=== PATIENT | male | born 1985 | race Caucasian/White ===

== ENCOUNTER 2017-08-31 09:49 | Emergency (ER) | payer OTHER, SELFPAY ==
[2017-08-31] MEDS ORDERED: ONDANSETRON 4 MG/2 ML VIAL ONE (10:12)
[2017-08-31] MEDS ORDERED: MORPHINE 4 MG/ML SYR ONE (10:12)
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
[2017-08-31 14:02] VITALS: BP 109/74; TEMP 98.1; O2SAT 100
== END 2017-08-31 13:51 | disposition home or self-care (01) ==
LOC: ER 09:49
DX: S30.22XA Contusion of scrotum and testes, initial encounter (principal); W50.0XXA Accidental hit or strike by another person, initial encounter; Y92.009 Unspecified place in unspecified non-institutional (private) residence as the place of occurrence of the external cause
CPT/HCPCS: 76870; 99284; J2405

== ENCOUNTER 2017-09-18 08:46 | Emergency (ER) | payer SELFPAY ==
[2017-09-18] MEDS ORDERED: HYDROCODONE/APAP 10/325 TAB ONE (09:26)
[2017-09-18] MEDS ORDERED: CYCLOBENZAPRINE 10 MG TAB ONE (09:26)
[2017-09-18] MEDS ORDERED: predniSONE 20 MG TAB ONE (09:27)
--- NOTE | 2017-09-18 10:37 | RAD REPORT ---
EXAM DESCRIPTION: RAD - Chest Single View - 09/18/2017 10:08 am CLINICAL HISTORY: lateral thorax pain Chest pain. COMPARISON: None FINDINGS: Portable technique limits examination quality. The lungs are grossly clear. The heart is normal in size. No displaced fractures. IMPRESSION: No acute intrathoracic process suspected.
--- NOTE | 2017-09-18 10:39 | RAD REPORT ---
EXAM DESCRIPTION: RAD - Ribs Left - 09/18/2017 10:08 am CLINICAL HISTORY: PAIN COMPARISON: Chest Single View dated 09/18/2017 FINDINGS: No fracture or subluxation is seen. No aggressive bone lesion. IMPRESSION: Negative study.
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
--- NOTE | 2017-09-18 10:48 | ER ---
Nurse's Notes [facility] Name: Reginald Vieyra Age: 31 yrs Sex: Male : 1985 Arrival Date: 09/18/2017 Time: 08:48 Bed 7 Private MD: None, None Diagnosis: Chest pain on breathing;Other chest pain;Fracture of one rib Presentation: 09/18 08:52 Transition of care: patient was not received from another setting of care. Onset of sg symptoms was September 18, 2017. Risk Assessment: Do you want to hurt yourself or someone else? Patient reports no desire to harm self or others. Initial Sepsis Screen: Does the patient meet any 2 criteria? No. Patient's initial sepsis screen is negative. Does the patient have a suspected source of infection? No. Patient's initial sepsis screen is negative. Care prior to arrival: None. 08:52 Method Of Arrival: Ambulatory sg 08:52 Acuity: GALE 3 sg 08:54 Presenting complaint: Patient states: I was seen here like the beginning of last month sg for some pain in my testicles, well today I have pain in my Left Side, like my left rib area, its been hurting now for about a week and i just want to get it checked out, and still having pain in my testicles. Triage Assessment: 08:54 General: Appears in no apparent distress. comfortable, well groomed, well developed, sg well nourished, Behavior is calm, cooperative, appropriate for age. Pain: Complains of pain in back, left lateral anterior chest and groin. Historical: - Allergies: 08:52 No Known Allergies; sg - PMHx: 08:52 testicular torsion; sg - Immunization history:: Adult Immunizations not up to date. - Social history:: Smoking status: . - Ebola Screening: : Patient negative for fever greater than or equal to 101.5 degrees Fahrenheit, and additional compatible Ebola Virus Disease symptoms Patient denies exposure to infectious person Patient denies travel to an Ebola-affected area in the 21 days before illness onset No symptoms or risks identified at this time. Screenin:59 Abuse screen: Denies threats or abuse. Denies injuries from another. Nutritional sg screening: No deficits noted. Tuberculosis screening: No symptoms or risk factors identified. Never had TB. Fall Risk None identified. Assessment: 08:55 General: Appears in no apparent distress. comfortable, well groomed, well developed, sg well nourished, Behavior is calm, cooperative, appropriate for age. Pain: Complains of pain in back and groin and left lateral anterior chest Quality of pain is described as aching. Neuro: No deficits noted. Cardiovascular: Patient's skin is warm and dry. Chest pain is located in left chest wall. Respiratory: Reports pain with respiration Airway is patent Respiratory effort is even, unlabored, Respiratory pattern is regular, symmetrical. GI: No signs and/or symptoms were reported involving the gastrointestinal system. : No signs and/or symptoms were reported regarding the genitourinary system. EENT: No signs and/or symptoms were reported regarding the EENT system. Derm: Skin is pink, warm \T\ dry. Musculoskeletal: No signs and/or symptoms reported regarding the musculoskeletal system. 09:45 Reassessment: Patient appears in no apparent distress at this time. Patient and/or hb family updated on plan of care and expected duration. Pain level reassessed. Patient is alert, oriented x 3, equal unlabored respirations, skin warm/dry/pink. 10:38 Reassessment: Patient appears in no apparent distress at this time. No changes from previously documented assessment. Patient and/or family updated on plan of care and expected duration. Pain level reassessed. Patient is alert, oriented x 3, equal unlabored respirations, skin warm/dry/pink. 10:45 Reassessment: pt ambulatory to ER restroom, steady gait. sg Vital Signs: 08:57 BP 116 / 77; Pulse 78; Resp 16 S; Temp 97.9(O); Pulse Ox 100% on R/A; Weight 92.99 kg sg (R); Pain 7/10; 09:45 BP 120 / 76; Pulse 77; Resp 15; Pulse Ox 100% on R/A; hb 10:39 BP 126 / 74; Pulse 70; Resp 15; Pulse Ox 100% on R/A; hb ED Course: 08:48 Patient arrived in ED. sb2 08:49 None, None is Private Physician. sb2 08:54 Triage completed. sg 08:55 No provider procedures requiring assistance completed. sg 08:58 Arm band placed on. sg 09:13 Kem Hammond MD is Attending Physician. kdr 09:24 Ford, Dejan, RN is Primary Nurse. sg 09:25 Awaiting for x-ray. sg 09:54 Awaiting radiology results. sg 10:03 CXR XRAY In Process Unspecified. EDMS 10:03 Ribs Left XRAY In Process Unspecified. EDMS Administered Medications: 09:24 Drug: [place] 10 mg-325 mg 1 tabs Route: PO; sg 10:44 Follow up: Response: No adverse reaction; Pain is decreased sg 09:25 Drug: Flexeril 10 mg Route: PO; sg 10:44 Follow up: Response: No adverse reaction sg 09:25 Drug: predniSONE 40 mg Route: PO; sg 10:45 Follow up: Response: No adverse reaction sg Outcome: 10:48 Discharge ordered by . kdr 11:07 Patient left the ED. sg Signatures: Dispatcher [employer] Dejan Hartman, RN RN Kem Gannon MD MD kdr Delfina Whitfield RN RN Sapna Rey sb2 Corrections: (The following items were deleted from the chart) 08:59 08:57 BP 116 / 77; Pulse 78bpm; Resp 16bpm; Spontaneous; Pulse Ox 100% RA; Temp 97.9F sg Oral; 70.31 kg Reported; Pain 7/10; sg 09:54 09:25 Awaiting: ultrasound sg sg
[2017-09-18 11:12] VITALS: TEMP 97.9; O2SAT 100
[2017-09-18 11:14] VITALS: BP 126/74
== END 2017-09-18 11:07 | disposition home or self-care (01) ==
LOC: ER 08:46
DX: M84.48XA Pathological fracture, other site, initial encounter for fracture (principal); R07.89 Other chest pain
CPT/HCPCS: 71045; 99283; J7512

== ENCOUNTER 2018-10-18 05:43 | Emergency (ER) | payer SELFPAY ==
[2018-10-18 06:29] LABS: Absolute Lymphocytes (CBC) 1.6 K/uL (0.7-4.9); Basophils % 0.9 % (0-1.3); Hematocrit 34.5 % (39.6-49.0); MPV 8.6 fL (7.6-11.3); RBC Red Blood Cell Count 4.29 M/uL (4.33-5.43)
[2018-10-18 06:43] LABS: BUN Blood Urea Nitrogen 22 mg/dL (7-18); Bicarbonate 26 mmol/L (21-32); Glucose Level 117 mg/dL (74-106); Potassium 3.6 mmol/L (3.5-5.1); Sodium Level 146 mmol/L (136-145); Troponin (Emerg Dept Use Only) < 0.02 ng/mL (0.0-0.045)
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
[2018-10-18 06:48] VITALS: BP 115/77; TEMP 98.6; O2SAT 98
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
--- NOTE | 2018-10-18 11:46 | RAD REPORT ---
EXAM DESCRIPTION: Taty Single View10/18/2018 6:33 am CLINICAL HISTORY: Chest pain COMPARISON: 2018 FINDINGS: The lungs appear clear of acute infiltrate. The heart is normal size IMPRESSION: No acute abnormalities displayed
--- NOTE | 2018-10-19 08:39 | EKG ---
Test Date: 2018-10-18 Test Time: 06:09:55 Special Education Teaching Assistant: VALERIO MEASUREMENT RESULTS: Intervals: Rate: 97 ND: 158 QRSD: 96 QT: 346 QTc: 439 Paden: P: 76 ND: 158 QRS: 70 T: 63 INTERPRETIVE STATEMENTS: Normal sinus rhythm Normal ECG No previous ECG available for comparison Electronically Signed On 10-19-18 08:36:23 CDT by Maxx Giles
== END 2018-10-18 06:44 | disposition left against medical advice (07) ==
LOC: ER 05:43
DX: R07.89 Other chest pain (principal)
CPT/HCPCS: 36415; 71045; 80048; 84484; 85025; 93005; 99284

== ENCOUNTER 2018-11-10 12:08 | Emergency (ER) | payer SELFPAY ==
[2018-11-10] MEDS ORDERED: TETANUS & DIPHTHERIA TOX,ADULT 0.5 ML VIAL ONE (12:36)
[2018-11-10] MEDS ORDERED: CODEINE 30MG/APAP 300MG TAB ONE (12:37)
--- NOTE | 2018-11-10 13:30 | EDPHYS ---
Physician Documentation [facility] Name: Reginald Vieyra Age: 32 yrs Sex: Male : 1985 Arrival Date: 11/10/2018 Time: 12:11 Bed 17 Private MD: None, None ED Physician Juan Leonard HPI: 11/10 12:35 This 32 yrs old Male presents to ER via Ambulatory with complaints of Finger pm1 swelling. 12:35 the patient presents with a swollen area of the dorsal aspect of distal phalanx of pm1 right middle finger. Description: swollen. Onset: The symptoms/episode began/occurred 3 day(s) ago. Possible cause(s): unknown. Associated signs and symptoms: Pertinent positives: swelling, Pertinent negatives: foreign body sensation, fever. Modifying factors: the symptoms are alleviated by nothing, the symptoms are aggravated by nothing. The patient has not recently seen a physician. Patient has attempted I\\T\\D multiple times since onset, including today, and no drainage present. 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 - Social history:: Smoking status: . - Ebola Screening: : Patient denies travel to an Ebola-affected area in the 21 days before illness onset. ROS: 12:35 Constitutional: Negative for fever, chills, and weight loss, Eyes: Negative for injury, pm1 pain, redness, and discharge, ENT: Negative for injury, pain, and discharge, Neck: Negative for injury, pain, and swelling, Cardiovascular: Negative for chest pain, palpitations, and edema, Respiratory: Negative for shortness of breath, cough, wheezing, and pleuritic chest pain, Abdomen/GI: Negative for abdominal pain, nausea, vomiting, diarrhea, and constipation, Back: Negative for injury and pain, MS/Extremity: Negative for injury and deformity. 12:35 Skin: Positive for swelling, of the dorsal aspect of distal phalanx of right middle finger. Exam: 12:35 Constitutional: This is a well developed, well nourished patient who is awake, alert, pm1 and in no acute distress. Chest/axilla: Normal chest wall appearance and motion. Nontender with no deformity. No lesions are appreciated. Cardiovascular: Regular rate and rhythm with a normal S1 and S2. No gallops, murmurs, or rubs. Normal PMI, no JVD. No pulse deficits. Respiratory: Lungs have equal breath sounds bilaterally, clear to auscultation and percussion. No rales, rhonchi or wheezes noted. No increased work of breathing, no retractions or nasal flaring. Back: No spinal tenderness. No costovertebral tenderness. Full range of motion. 12:35 Skin: Appearance: normal except for affected area, abscess, not appreciated, cellulitis, that is minimal, on the dorsal aspect of distal phalanx of right middle finger. 12:35 Neuro: Orientation: is normal, Sensation: is normal, no obvious gross deficits. Vital Signs: 12:16 BP 130 / 82; Pulse 104; Resp 18; Temp 98.6; Pulse Ox 100% ; Height 6 ft. 2 in. (187.96 sv cm); MDM: 12:20 Patient medically screened. pm1 13:26 Data reviewed: vital signs. Data interpreted: Pulse oximetry: on room air is 100 %. pm1 Interpretation: normal. Counseling: I had a detailed discussion with the patient and/or guardian regarding: the historical points, exam findings, and any diagnostic results supporting the discharge/admit diagnosis, radiology results, the need for outpatient follow up, to return to the emergency department if symptoms worsen or persist or if there are any questions or concerns that arise at home. 11/10 12:28 Order name: Hand Right 3 View XRAY pm1 Administered Medications: 12:40 Not Given (Patient Refused; pt states "had tetanus shot when i got out of intermediate 2016"): Tetanus-Diphtheria Toxoid Adult 0.5 ml IM once 12:40 Not Given (Patient Refused; states had "tetanus in 2017 when i got out of intermediate"): tw Tylenol #3 (300 mg-30 mg) 2 tabs PO once; RASS on ADMIN: Combtv4, Very Agttd3, Agttd2, Rstlss1, AlertClm0, Drwsy-1, Lt Sdtn-2, Mod Sdtn-3, Dp Sdtn-4, UnArsble-5 12:40 Drug: Tylenol #3 (300 mg-30 mg) 2 tabs {Note: rass - 0.} Route: PO; tw2 13:36 Follow up: Response: No adverse reaction; Pain is decreased; RASS: Alert and Calm (0) tw2 Disposition: 11/10/18 13:29 Discharged to Home. Impression: Cellulitis of right finger. - Condition is Stable. - Discharge Instructions: Cellulitis, Adult. - Prescriptions for Augmentin 875- 125 mg Oral Tablet - take 1 tablet by ORAL route every 12 hours for 10 days; 20 tablet. Bactrim DS 800- 160 mg Oral Tablet - take 1 tablet by ORAL route every 12 hours for 10 days; 20 tablet. - Medication Reconciliation Form, Thank You Letter, Antibiotic Education, Prescription Opioid Use form. - Follow up: Emergency Department; When: As needed; Reason: Worsening of condition. Follow up: Private Physician; When: 2 - 3 days; Reason: Recheck today's complaints, Continuance of care, Re-evaluation by your physician. - Problem is new. - Symptoms have improved. Addendum: 11/12/2018 07:27 Co-signature as Attending Physician, Juan Leonard MD. g s Signatures: Dispatcher [employer] EDMS Jackie Maldonado RN RN sv Jorden Lopez NP COSMETIC ASSEMBLER pm1 Lela Hopkins RN RN tw2 Juan Leonard MD MD Corrections: (The following items were deleted from the chart) 11/10 13:38 13:29 11/10/2018 13:29 Discharged to Home. Impression: Cellulitis of right finger. tw2 Condition is Stable. Forms are Medication Reconciliation Form, Thank You Letter, Antibiotic Education, Prescription Opioid Use. Follow up: Emergency Department; When: As needed; Reason: Worsening of condition. Follow up: Private Physician; When: 2 - 3 days; Reason: Recheck today's complaints, Continuance of care, Re-evaluation by your physician. Problem is new. Symptoms have improved. pm1
--- NOTE | 2018-11-10 13:30 | ER ---
Nurse's Notes [facility] Name: Reginald Vieyra Age: 32 yrs Sex: Male : 1985 Arrival Date: 11/10/2018 Time: 12:11 Bed 17 Private MD: None, None Diagnosis: Cellulitis of right finger Presentation: 11/10 12:16 Presenting complaint: Patient states: right 4th digit swelling and redness. Pt I\\T\\D COMPTROLLER. sv Transition of care: patient was not received from another setting of care. Onset of symptoms was October 2018. Risk Assessment: Do you want to hurt yourself or someone else? Patient reports no desire to harm self or others. Care prior to arrival: Medication(s) given: took a PCN pill from someone this morning. 12:16 Method Of Arrival: Ambulatory sv 12:16 Acuity: GALE 3 sv 13:36 Initial Sepsis Screen: Does the patient meet any 2 criteria? No. Patient's initial tw2 sepsis screen is negative. Does the patient have a suspected source of infection? Yes: Skin breakdown/wound. 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 - Social history:: Smoking status: . - Ebola Screening: : Patient denies travel to an Ebola-affected area in the 21 days before illness onset. Screenin:36 Abuse screen: Denies threats or abuse. Nutritional screening: No deficits noted. tw2 Tuberculosis screening: No symptoms or risk factors identified. Fall Risk None identified. Assessment: 12:30 General: Appears in no apparent distress. unkempt, Behavior is calm, cooperative, tw2 appropriate for age. Pain: Complains of pain in right hand. Neuro: Level of Consciousness is awake, alert, obeys commands, Oriented to person, place, time, situation. Cardiovascular: Patient's skin is warm and dry. Respiratory: Airway is patent Respiratory effort is even, unlabored, Respiratory pattern is regular, agonal. GI: No signs and/or symptoms were reported involving the gastrointestinal system. Derm: redness and swelling noted to Right hand middle finger. Musculoskeletal: Range of motion: intact in all extremities, Swelling present in dorsal aspect of distal phalanx of right middle finger, dorsal aspect of middle phalanx of right middle finger and dorsal aspect of proximal phalanx of right middle finger. 13:36 Reassessment: Patient appears in no apparent distress at this time. No changes from tw2 previously documented assessment. Patient and/or family updated on plan of care and expected duration. Pain level reassessed. Patient is alert, oriented x 3, equal unlabored respirations, skin warm/dry/pink. Vital Signs: 12:16 BP 130 / 82; Pulse 104; Resp 18; Temp 98.6; Pulse Ox 100% ; Height 6 ft. 2 in. (187.96 sv cm); ED Course: 12:11 Patient arrived in ED. dl4 12:12 None, None is Private Physician. dl4 12:16 Triage completed. sv 12:17 Arm band placed on. sv 12:18 Jorden Lopez, GIUSEPPE is PHCP. pm1 12:18 Juan Leonard MD is Attending Physician. pm1 12:31 Lela Hopkins RN is Primary Nurse. tw2 13:02 Patient has correct armband on for positive identification. Bed in low position. Call mh5 light in reach. Side rails up X 1. Adult w/ patient. Pulse ox on. NIBP on. 13:21 Hand Right 3 View XRAY In Process Unspecified. EDMS 13:37 No provider procedures requiring assistance completed. Patient did not have IV access tw2 during this emergency room visit. Administered Medications: 12:40 Not Given (Patient Refused; pt states "had tetanus shot when i got out of [facility] tw2 2016"): Tetanus-Diphtheria Toxoid Adult 0.5 ml IM once 12:40 Not Given (Patient Refused; states had "tetanus in 2017 when i got out of [facility]"): tw2 Tylenol #3 (300 mg-30 mg) 2 tabs PO once; RASS on ADMIN: Combtv4, Very Agttd3, Agttd2, Rstlss1, AlertClm0, Drwsy-1, Lt Sdtn-2, Mod Sdtn-3, Dp Sdtn-4, UnArsble-5 12:40 Drug: Tylenol #3 (300 mg-30 mg) 2 tabs {Note: rass - 0.} Route: PO; tw2 13:36 Follow up: Response: No adverse reaction; Pain is decreased; RASS: Alert and Calm (0) tw2 Outcome: 13:29 Discharge ordered by MD. pm1 13:37 Discharged to home ambulatory, with significant other. tw2 13:37 Condition: stable 13:37 Discharge instructions given to patient, significant other, Instructed on discharge instructions, follow up and referral plans. medication usage, wound care, Demonstrated understanding of instructions, follow-up care, medications, wound care, Prescriptions given X 2. 13:38 Patient left the ED. tw2 Signatures: Dispatcher [employer] Jackie Mckoy RN RN Jroden Lopez, GIUSEPPE CUPBOARD BUILDER pm1 Lela Hopkins RN RN tw2 Julita Sullivan [facility] Sarah 4 Corrections: (The following items were deleted from the chart) 12:17 12:16 Care prior to arrival: None. nicki caceres
[2018-11-10 13:43] VITALS: BP 130/82; TEMP 98.6; O2SAT 100
--- NOTE | 2018-11-10 13:43 | RAD REPORT ---
EXAM DESCRIPTION: RAD - Hand Right 3 View - 11/10/2018 1:20 pm CLINICAL HISTORY: Right hand pain, pain and swelling right fourth digit COMPARISON: None. FINDINGS: No fracture is identified. There is no dislocation or periosteal reaction noted. No acute or destructive bone process. There is soft tissue swelling primarily around the PIP joint of the rig ht fourth digit. No calcification, mass or foreign body in the soft tissues. The fourth PIP joint maria guadalupe ws no joint space narrowing, spurring or erosive change. IMPRESSION: Soft tissue swelling of the right fourth digit without associated bone or joint abnormal ity. No calcification, air or foreign body in the soft tissues.
== END 2018-11-10 13:38 | disposition home or self-care (01) ==
LOC: ER 12:08
DX: L03.011 Cellulitis of right finger (principal)
CPT/HCPCS: 90714; 99284

== ENCOUNTER 2018-11-14 10:02 | Emergency (ER) | payer SELFPAY ==
[2018-11-14] MEDS ORDERED: NA CHLORIDE 0.9% 1,000 ML ONE (10:31)
[2018-11-14] MEDS ORDERED: PIPER/TAZO/NS 3.375gm 0 GM/0 ML BAG ONE (10:58)
[2018-11-14 10:59] LABS: Absolute Lymphocytes (CBC) 1.6 K/uL (0.7-4.9); Basophils % 0.7 % (0-1.3); Hematocrit 39.5 % (39.6-49.0); Lymphocytes % 20.1 % (15.3-44.8); MPV 8.4 fL (7.6-11.3); RBC Red Blood Cell Count 4.89 M/uL (4.33-5.43)
[2018-11-14] MEDS ORDERED: LIDOCAINE 1% MPF 5 ML VIAL ONE (11:02)
[2018-11-14] MEDS ORDERED: DOXYCYCLINE 100 MG CAP PO ONE (11:03)
[2018-11-14] MEDS ORDERED: BUPIVACAINE 0.25% PF 10 ML VIAL ONE (11:03)
[2018-11-14] MEDS ORDERED: LIDOCAINE 1% MPF 30 ML VIAL ONE ×2 (11:14→12:12)
--- NOTE | 2018-11-14 11:42 | RAD REPORT ---
EXAM DESCRIPTION: RAD - Hand Right 3 View - 11/14/2018 10:55 am CLINICAL HISTORY: Right hand pain FINDINGS: No fracture or dislocation is seen. Soft tissue swelling adjacent to the the fourth the middle and distal phalanges. No bony destruction is seen
[2018-11-14 11:55] LABS: C-Reactive Protein 37.5 mg/L (<3.00); Potassium 3.9 mmol/L (3.5-5.1)
--- NOTE | 2018-11-14 12:47 | EDPHYS ---
Physician Documentation [facility] Name: Reginald Vieyra Age: 32 yrs Sex: Male : 1985 Arrival Date: 11/14/2018 Time: 10:07 Bed 20 Private MD: ED Physician Rafael Loja HPI: 11/14 10:25 This 32 yrs old Male presents to ER via EMS with complaints of Wound cp Infection. 10:25 The patient or guardian reports pain. cp 10:25 The complaints affect the dorsal aspect of middle phalanx of right ring finger. cp 10:25 Context: Patient reports improved swelling of finger, but now has open wound with cp drainage today. Patient was seen 4 days ago for infected right fourth finger and discharge with RXs for oral Augmentin and Bactrim. Patient reports he picked up Bactrim only from pharmacy and has only taken 3 doses. Patient reports he was unable to afford Augmentin. Denies injury to finger. Historical: - Allergies: 10:13 No Known Allergies; em - Home Meds: 10:13 None [Active]; em - PMHx: 10:13 testicular torsion; em - PSHx: 10:13 None; em - Immunization history:: Adult Immunizations up to date. - Social history:: Smoking status: Patient/guardian denies using tobacco. - Ebola Screening: : Patient negative for fever greater than or equal to 101.5 degrees Fahrenheit, and additional compatible Ebola Virus Disease symptoms Patient denies exposure to infectious person Patient denies travel to an Ebola-affected area in the 21 days before illness onset No symptoms or risks identified at this time. ROS: 10:30 Constitutional: Negative for body aches, chills, fever, poor PO intake. cp 10:30 Eyes: Negative for injury, pain, redness, and discharge. cp 10:30 MS/extremity: Positive for decreased range of motion, erythema, pain, swelling, cp tenderness, of the right fourth finger, Negative for injury or acute deformity, paresthesias. 10:30 All other systems are negative. cp Exam: 10:45 Constitutional: The patient appears in no acute distress, alert, awake, non-toxic, well cp developed, well nourished. 10:45 Head/Face: Normocephalic, atraumatic. cp 10:45 Musculoskeletal/extremity: ROM: limited passive range of motion due to pain, in the right fourth finger, Perfusion: the extremity is normally perfused throughout. 10:45 Skin: abscess, that is moderate sized, of the dorsal aspect of middle phalanx of right ring finger, with drainage, that is purulent, with fluctuance, with surrounding cellulitis, that is moderate, extending proximally. 10:45 Neuro: Sensation: no obvious gross deficits. Vital Signs: 10:13 BP 121 / 83; Pulse 96; Resp 18; Temp 98.9(O); Pulse Ox 98% on R/A; Pain 0/10; em 11:00 BP 108 / 60; Pulse 70; Resp 17; Temp 98.4(O); Pulse Ox 100% ; mh5 11:50 BP 113 / 68; Pulse 81; Resp 17; Temp 98.9(O); Pulse Ox 100% on R/A; mh5 Procedures: 12:35 I \T\ D: Incision and drainage was performed for an abscess of the dorsal aspect of cp middle phalanx of right ring finger Prepped with Betadine, Anesthetized with digital block performed with 10 ccs of 50/50 mixture 1% lidocaine w/o epi and 0.5% marcaine w/o epi. Incised with #11 blade. Drained moderate amount purulent fluid. bloody fluid. Cultures obtained. Packed with iodoform gauze, Dressing: bulky type the patient tolerated the procedure well, necrotic tissue removed. 12:35 Performed I\T\D of finger. performed by DR Loja. MDM: 10:12 Patient medically screened. [facility] 12:44 Data reviewed: vital signs, nurses notes, lab test result(s), radiologic studies, plain cp films. 11/14 10:19 Order name: CBC with Diff; Complete Time: 12:04 11/14 11:55 Interpretation: Normal except: HCT 39.5. 11/14 10:19 Order name: BMP; Complete Time: 12:04 11/14 12:04 Interpretation: Normal except: GLUC 121; GFR 80. 11/14 10:19 Order name: XRAY Hand RIGHT 3 View; Complete Time: 11:54 11/14 11:54 Interpretation: Report reviewed. 11/14 10:19 Order name: Wound Culture 11/14 10:19 Order name: Sed Rate; Complete Time: 12:04 11/14 12:05 Interpretation: Within normal limits: SED 9. cp 11/14 10:19 Order name: CRP; Complete Time: 12:04 cp 11/14 12:05 Interpretation: Abnormal: C-REACTIVE PROT 37.50. cp 11/14 10:19 Order name: IV; Complete Time: 10:40 cp 11/14 11:08 Order name: Dressing - Wound; Complete Time: 13:06 cp 11/14 11:08 Order name: Gloves, Sterile; Complete Time: 11:21 cp 11/14 11:08 Order name: Setup Suture Tray; Complete Time: 11:22 cp 11/14 12:31 Order name: Wound dressing: bulky dressing; Complete Time: 13:06 cp Administered Medications: 10:40 Drug: NS 0.9% 1000 ml Route: IV; Rate: 1 bolus; Site: left antecubital; em 11:37 Follow up: IV Status: Completed infusion; IV Intake: 1000ml em 10:58 Not Given (Physician Discretion): Zosyn 3.375 grams IVPB once over 60 mins; (mix in NS em 100 mL) 11:05 Drug: Doxycycline 200 mg Route: PO; em 11:38 Follow up: Response: No adverse reaction em 11:25 Drug: Lidocaine (1 %) 10 ml {Note: administered by PA. Rafael} Volume: 5 ml; Route: em Infiltration; 11:25 Drug: Marcaine (0.5 %) 10 ml {Note: adminisitered by PA. Rafael} Volume: 10 ml; Route: em Infiltration; Disposition: 11/14/18 12:46 Discharged to Home. Impression: Cutaneous abscess of right hand - Right middle finger, Cellulitis of right finger - middle. - Condition is Stable. - Discharge Instructions: Skin Abscess, Cellulitis, Adult, Incision and Drainage. - Prescriptions for Ibuprofen 800 mg Oral Tablet - take 1 tablet by ORAL route every 8 hours As needed take with food; 30 tablet. Doxycycline Hyclate 100 mg Oral Tablet - take 1 tablet by ORAL route every 12 hours; 20 tablet. - Medication Reconciliation Form, Thank You Letter, Antibiotic Education, Prescription Opioid Use form. - Follow up: Primitivo Martinez MD; When: 11/16/2018; Reason: Wound Recheck. - Problem is an ongoing problem. - Symptoms have improved. Addendum: 11/16/2018 08:00 Co-signature as Attending Physician, Rafael Loja MD I agree with the assessment and c chang plan of care. Signatures: Dispatcher [employer] Rafael Mckinney MD MD cha Munoz, Edgar, PRECIPITATOR PRECIPITATOR em Rafael Boyd PA PA cp Corrections: (The following items were deleted from the chart) 11/14 13:21 12:46 11/14/2018 12:46 Discharged to Home. Impression: Cutaneous abscess of right hand em - Right middle finger; Cellulitis of right finger - middle. Condition is Stable. Forms are Medication Reconciliation Form, Thank You Letter, Antibiotic Education, Prescription Opioid Use. Follow up: Primitivo Martinez; When: 11/16/2018; Reason: Wound Recheck. Problem is an ongoing problem. Symptoms have improved. cp 11/15 12:38 11/14 10:25 The complaints affect the cp cp
--- NOTE | 2018-11-14 12:47 | ER ---
Nurse's Notes [facility] Name: Reginald Vieyra Age: 32 yrs Sex: Male : 1985 Arrival Date: 11/14/2018 Time: 10:07 Bed 20 Private MD: Diagnosis: Cutaneous abscess of right hand-Right middle finger;Cellulitis of right finger-middle Presentation: 11/14 10:07 Presenting complaint: EMS states: called out for finger injury/wound on right ring em finger, was seen here in ER 3 days ago and given prescription for Bactrim and amoxicillin for finger abscess, was unable to fill the amoxicillin due to cost, reports abscess popped in the middle of the night, wound noted on right ring finger, exudate noted, denies fever. Transition of care: patient was not received from another setting of care. Onset of symptoms was November 09, 2018. Risk Assessment: Do you want to hurt yourself or someone else? Patient reports no desire to harm self or others. Initial Sepsis Screen: Does the patient meet any 2 criteria? No. Patient's initial sepsis screen is negative. Does the patient have a suspected source of infection? No. Patient's initial sepsis screen is negative. Care prior to arrival: None. 10:07 Method Of Arrival: EMS: [facility] em 10:16 Acuity: GALE 3 ss Historical: - Allergies: 10:13 No Known Allergies; em - Home Meds: 10:13 None [Active]; em - PMHx: 10:13 testicular torsion; em - PSHx: 10:13 None; em - Immunization history:: Adult Immunizations up to date. - Social history:: Smoking status: Patient/guardian denies using tobacco. - Ebola Screening: : Patient negative for fever greater than or equal to 101.5 degrees Fahrenheit, and additional compatible Ebola Virus Disease symptoms Patient denies exposure to infectious person Patient denies travel to an Ebola-affected area in the 21 days before illness onset No symptoms or risks identified at this time. Screenin:13 Abuse screen: Denies threats or abuse. Nutritional screening: No deficits noted. em Tuberculosis screening: No symptoms or risk factors identified. Fall Risk Assessment: 10:13 General: Appears in no apparent distress. comfortable, Behavior is calm, cooperative, em Denies fever. Pain: Denies pain. Neuro: Level of Consciousness is awake, alert, obeys commands, Oriented to person, place, time, situation, Appropriate for age. Cardiovascular: Capillary refill < 3 seconds Patient's skin is warm and dry. Respiratory: Airway is patent Respiratory effort is even, unlabored, Respiratory pattern is regular, symmetrical. Derm: Skin is intact, is healthy with good turgor, Skin is pink, warm \T\ dry. Wound noted dorsal aspect of middle phalanx of right ring finger Wound is exudate and drainage noted. Musculoskeletal: Capillary refill < 3 seconds, Range of motion: intact in all extremities, Swelling present in dorsal aspect of distal phalanx of right ring finger, dorsal aspect of middle phalanx of right ring finger, dorsal aspect of proximal phalanx of right ring finger and right arm. 11:00 Reassessment: Patient appears in no apparent distress at this time. Patient and/or em family updated on plan of care and expected duration. Pain level reassessed. Patient is alert, oriented x 3, equal unlabored respirations, skin warm/dry/pink. 13:00 Reassessment: Patient appears in no apparent distress at this time. Patient and/or em family updated on plan of care and expected duration. Pain level reassessed. Patient is alert, oriented x 3, equal unlabored respirations, skin warm/dry/pink. Patient states feeling better. Vital Signs: 10:13 BP 121 / 83; Pulse 96; Resp 18; Temp 98.9(O); Pulse Ox 98% on R/A; Pain 0/10; em 11:00 BP 108 / 60; Pulse 70; Resp 17; Temp 98.4(O); Pulse Ox 100% ; mh5 11:50 BP 113 / 68; Pulse 81; Resp 17; Temp 98.9(O); Pulse Ox 100% on R/A; mh5 ED Course: 10:07 Patient arrived in ED. em 10:09 Rafael Boyd PA is PHCP. cp 10:10 Rafael Loja MD is Attending Physician. cp 10:13 Arm band placed on. em 10:13 Patient has correct armband on for positive identification. Placed in gown. Bed in low em position. Call light in reach. Pulse ox on. NIBP on. 10:16 Triage completed. ss 10:25 Erazo, Ari, PILE DRIVING SETTER is Primary Nurse. em 10:40 Initial lab(s) drawn, by me, sent to lab. Wound culture swab sent to lab. Inserted em saline lock: 20 gauge in left antecubital area, using aseptic technique. Blood collected. 10:52 Warm blanket given. mh5 10:56 XRAY Hand RIGHT 3 View In Process Unspecified. EDMS 12:45 Primitivo Martinez MD is Referral Physician. cp 13:04 Dressings: non-adherent dressing x 2 dorsal aspect of middle phalanx of left ring mh5 finger and dorsal aspect of proximal phalanx of left ring finger. 13:18 No provider procedures requiring assistance completed. IV discontinued, intact, em bleeding controlled, No redness/swelling at site. Pressure dressing applied. Administered Medications: 10:40 Drug: NS 0.9% 1000 ml Route: IV; Rate: 1 bolus; Site: left antecubital; em 11:37 Follow up: IV Status: Completed infusion; IV Intake: 1000ml em 10:58 Not Given (Physician Discretion): Zosyn 3.375 grams IVPB once over 60 mins; (mix in NS em 100 mL) 11:05 Drug: Doxycycline 200 mg Route: PO; em 11:38 Follow up: Response: No adverse reaction em 11:25 Drug: Lidocaine (1 %) 10 ml {Note: administered by PA. Rafael} Volume: 5 ml; Route: em Infiltration; 11:25 Drug: Marcaine (0.5 %) 10 ml {Note: adminisitered by PA. Rafael} Volume: 10 ml; Route: em Infiltration; Intake: 11:37 IV: 1000ml; Total: 1000ml. em Outcome: 12:46 Discharge ordered by . cp 13:18 Discharged to home ambulatory, with family. em 13:18 Condition: good 13:18 Discharge instructions given to patient, family, Instructed on discharge instructions, follow up and referral plans. medication usage, wound care, Demonstrated understanding of instructions, follow-up care, medications, wound care, Prescriptions given X 2. 13:21 Patient left the ED. em Addendum: 11/17/2018 08:17 Addendum: Culture Results: Positive wound culture. No further action required. Bacteria a a5 sensitive to prescribed antibiotic. Signatures: Dispatcher [employer] EDNJ Ari Erazo LVN PILE DRIVING SETTER Felecia Allen, RN RN aa5 Ladonna Espinoza RN RN ss Rafael Boyd PA PA cp Martinez, Maria [facility]
[2018-11-14 13:40] VITALS: O2SAT 100
[2018-11-14 13:41] VITALS: BP 113/68; TEMP 98.9
== END 2018-11-14 13:21 | disposition home or self-care (01) ==
LOC: ER 10:02
PROC: 0H9FXZZ Drainage of Right Hand Skin, External Approach (ICD-10-PCS; principal; 2018-11-14)
DX: L02.511 Cutaneous abscess of right hand (principal); L03.011 Cellulitis of right finger
CPT/HCPCS: 36415; 80048; 85025; 85652; 86140; 87070; 87077; 87186; 87205; 96360; 99284; J2543; J7030

== ENCOUNTER 2019-02-24 11:55 | Emergency (ER) | payer SELFPAY ==
--- NOTE | 2019-02-24 12:37 | EDPHYS ---
Physician Documentation [facility] Name: Reginald Vieyra Age: 33 yrs Sex: Male : 1985 Arrival Date: 02/24/2019 Time: 11:58 Bed 9 Private MD: Tato Ross E ED Physician Kem Hammond HPI: 02/24 12:29 This 33 yrs old Male presents to ER via Ambulatory with complaints of cp Toothache. 12:29 The patient presents with pain. The problem is located in the right upper and lower cp molars. Onset: The symptoms/episode began/occurred this morning. Associated signs and symptoms: Pertinent negatives: dysphagia, fever, inability to eat. Severity of symptoms: in the emergency department the symptoms are unchanged. Historical: - Allergies: 12:21 No Known Allergies; iw - Home Meds: 12:21 None [Active]; iw - PMHx: 12:21 testicular torsion; iw - PSHx: 12:21 hand; iw - Immunization history:: Adult Immunizations not up to date. - Social history:: Smoking status: Patient/guardian denies using tobacco. - Ebola Screening: : Patient negative for fever greater than or equal to 101.5 degrees Fahrenheit, and additional compatible Ebola Virus Disease symptoms Patient denies exposure to infectious person Patient denies travel to an Ebola-affected area in the 21 days before illness onset No symptoms or risks identified at this time. ROS: 12:31 Eyes: Negative for injury, pain, redness, and discharge. cp 12:31 Constitutional: Negative for body aches, chills, fever, poor PO intake. 12:31 ENT: Positive for dental pain, Negative for drainage from ear(s), ear pain, sore throat, difficulty swallowing, difficulty handling secretions. 12:31 Neck: Negative for pain with movement, pain at rest, stiffness. 12:31 Respiratory: Negative for cough, shortness of breath, wheezing. 12:31 Abdomen/GI: Negative for abdominal pain, nausea, vomiting, and diarrhea. 12:31 Skin: Negative for rash. 12:31 Neuro: Negative for altered mental status, headache. 12:31 All other systems are negative. Exam: 12:32 Head/Face: Normocephalic, atraumatic. cp 12:32 Constitutional: The patient appears in no acute distress, alert, awake, non-toxic, well developed, well nourished. 12:32 Eyes: Periorbital structures: appear normal, Conjunctiva: normal, no exudate, no injection, Sclera: no appreciated abnormality, Lids and lashes: appear normal, bilaterally. 12:32 ENT: External ear(s): are unremarkable, Ear canal(s): are normal, clear, TM's: dullness, bilaterally, Nose: is normal, Mouth: Lips: moist, Oral mucosa: pink and intact, moist, Posterior pharynx: is normal, airway is patent, no erythema, no exudate, Dental exam: dental caries, that is moderate, diffusely, fractured teeth are noted, specifically the upper right third molar (#1), upper right second molar (#2), lower left third molar (#17) and lower right third molar (#32), gum swelling, that is mild, specifically in the upper right third molar (#1) and upper right second molar (#2), pain, that is mild, specifically in the upper right third molar (#1), upper right second molar (#2) and lower right third molar (#32), Voice: is normal. 12:32 Neck: ROM/movement: is normal, is supple, no meningismus, no nuchal rigidity. 12:32 Chest/axilla: Inspection: normal. 12:32 Cardiovascular: Rate: normal. 12:32 Respiratory: the patient does not display signs of respiratory distress, Respirations: normal, no use of accessory muscles, no retractions, labored breathing, is not present. 12:32 Skin: no rash present. Vital Signs: 12:21 BP 119 / 84; Pulse 81; Resp 16; Temp 98.5; Pulse Ox 98% on R/A; Weight 83.91 kg; Height iw 6 ft. 2 in. (187.96 cm); Pain 3/10; 12:21 Body Mass Index 23.75 (83.91 kg, 187.96 cm) iw MDM: 12:26 Patient medically screened. cp 12:30 Differential diagnosis: dental caries, dental abscess, pericoronitis. cp 12:35 Data reviewed: vital signs, nurses notes, and as a result, I will discharge patient. cp Counseling: I had a detailed discussion with the patient and/or guardian regarding: the historical points, exam findings, and any diagnostic results supporting the discharge/admit diagnosis, the need for outpatient follow up, for definitive care, a dentist, to return to the emergency department if symptoms worsen or persist or if there are any questions or concerns that arise at home. Administered Medications: 12:43 Drug: Ibuprofen 800 mg Route: PO; iw 12:44 Follow up: Response: No adverse reaction iw 12:43 Drug: Tylenol 1000 mg Route: PO; iw 12:44 Follow up: Response: No adverse reaction iw Disposition: 13:53 Co-signature as Attending Physician, Kem Hammond MD I agree with the assessment and kdr plan of care. Disposition: 02/24/19 12:36 Discharged to Home. Impression: Dental caries, Tooth pain. - Condition is Stable. - Discharge Instructions: Dental Caries, Adult, Dental Pain. - Prescriptions for Amoxicillin 875 mg Oral Tablet - take 1 tablet by ORAL route every 12 hours for 10 days; 20 tablet. Ibuprofen 800 mg Oral Tablet - take 1 tablet by ORAL route every 8 hours As needed take with food; 30 tablet. - Medication Reconciliation Form, Thank You Letter, Antibiotic Education, Prescription Opioid Use form. - Follow up: Ramesh Mcconnell DDS; When: 2 - 3 days; Reason: Recheck today's complaints. - Problem is new. - Symptoms have improved. Signatures: Kem Hammond MD MD kdr Mihaela Juárez RN RN iw Rafael Boyd PA PA cp Corrections: (The following items were deleted from the chart) 12:38 12:36 02/24/2019 12:36 Discharged to Home. Impression: Dental caries; Jaw pain - right cp upper and lower. Condition is Stable. Forms are Medication Reconciliation Form, Thank You Letter, Antibiotic Education, Prescription Opioid Use. Follow up: Ramesh Mcconnell; When: 2 - 3 days; Reason: Recheck today's complaints. Problem is new. Symptoms have improved. cp 12:44 12:38 02/24/2019 12:36 Discharged to Home. Impression: Dental caries; Tooth pain. iw Condition is Stable. Discharge Instructions: Dental Caries, Adult, Dental Pain. Prescriptions for Amoxicillin 875 mg Oral Tablet - take 1 tablet by ORAL route every 12 hours for 10 days; 20 tablet, Ibuprofen 800 mg Oral Tablet - take 1 tablet by ORAL route every 8 hours As needed take with food; 30 tablet. and Forms are Medication Reconciliation Form, Thank You Letter, Antibiotic Education, Prescription Opioid Use. Follow up: Ramesh Mcconnell; When: 2 - 3 days; Reason: Recheck today's complaints. Problem is new. Symptoms have improved. cp
--- NOTE | 2019-02-24 12:37 | ER ---
Nurse's Notes [facility] Name: Reginald Vieyra Age: 33 yrs Sex: Male : 1985 Arrival Date: 02/24/2019 Time: 11:58 Bed 9 Private MD: Tato Ross E Diagnosis: Dental caries;Tooth pain Presentation: 02/24 12:20 Presenting complaint: Patient states: right upper/bottom tooth pain X 2 weeks. iw Transition of care: patient was not received from another setting of care. Onset of symptoms was February 10, 2019. Risk Assessment: Do you want to hurt yourself or someone else? Patient reports no desire to harm self or others. Initial Sepsis Screen: Does the patient meet any 2 criteria? No. Patient's initial sepsis screen is negative. Does the patient have a suspected source of infection? No. Patient's initial sepsis screen is negative. Care prior to arrival: None. 12:20 Method Of Arrival: Ambulatory iw 12:20 Acuity: GALE 4 iw Triage Assessment: 12:43 EENT: Reports. iw Historical: - Allergies: 12:21 No Known Allergies; iw - Home Meds: 12:21 None [Active]; iw - PMHx: 12:21 testicular torsion; iw - PSHx: 12:21 hand; iw - Immunization history:: Adult Immunizations not up to date. - Social history:: Smoking status: Patient/guardian denies using tobacco. - Ebola Screening: : Patient negative for fever greater than or equal to 101.5 degrees Fahrenheit, and additional compatible Ebola Virus Disease symptoms Patient denies exposure to infectious person Patient denies travel to an Ebola-affected area in the 21 days before illness onset No symptoms or risks identified at this time. Screenin:25 Abuse screen: Denies threats or abuse. Denies injuries from another. Nutritional iw screening: No deficits noted. Tuberculosis screening: No symptoms or risk factors identified. Fall Risk None identified. Assessment: 12:24 General: Appears in no apparent distress. Behavior is calm, cooperative. Pain: iw Complains of pain in right cheek, mouth and right jaw Pain currently is 3 out of 10 on a pain scale. Neuro: Level of Consciousness is awake, alert, obeys commands, Oriented to person, place, time, situation, Moves all extremities. Full function. Cardiovascular: Patient's skin is warm and dry. Respiratory: Respiratory effort is even, unlabored, Respiratory pattern is regular, symmetrical. EENT: Derm: Skin is intact, is healthy with good turgor. Musculoskeletal: Range of motion: intact in all extremities. Vital Signs: 12:21 BP 119 / 84; Pulse 81; Resp 16; Temp 98.5; Pulse Ox 98% on R/A; Weight 83.91 kg; Height iw 6 ft. 2 in. (187.96 cm); Pain 3/10; 12:21 Body Mass Index 23.75 (83.91 kg, 187.96 cm) iw ED Course: 11:58 Patient arrived in ED. mr 11:58 Tato Ross MD is Private Physician. mr 12:21 Triage completed. iw 12:21 Arm band placed on. iw 12:22 Mihaela Juárez, DEMAR is Primary Nurse. iw 12:25 Rafael Boyd PA is PHCP. cp 12:25 Kem Hammond MD is Attending Physician. cp 12:35 Ramesh Mcconnell DDS is Referral Physician. cp 12:43 Patient has correct armband on for positive identification. iw 12:43 No provider procedures requiring assistance completed. Patient did not have IV access iw during this emergency room visit. Administered Medications: 12:43 Drug: Ibuprofen 800 mg Route: PO; iw 12:44 Follow up: Response: No adverse reaction iw 12:43 Drug: Tylenol 1000 mg Route: PO; iw 12:44 Follow up: Response: No adverse reaction iw Outcome: 12:36 Discharge ordered by MD. cp 12:43 Discharged to home ambulatory. iw 12:43 Condition: good 12:43 Discharge instructions given to patient, Instructed on discharge instructions, follow up and referral plans. medication usage, Demonstrated understanding of instructions, follow-up care, medications, Prescriptions given X 2. 12:44 Patient left the ED. iw Signatures: Hilda Browning mr Mihaela Juárez, RN RN iw Rafael Boyd PA PA cp
[2019-02-24] MEDS ORDERED: IBUPROFEN 400 MG TAB ONE (12:42)
[2019-02-24] MEDS ORDERED: ACETAMINOPHEN 500 MG TAB ONE (12:42)
[2019-02-24 12:53] VITALS: BP 119/84; TEMP 98.5; O2SAT 98
== END 2019-02-24 12:44 | disposition home or self-care (01) ==
LOC: ER 11:55
DX: K02.9 Dental caries, unspecified (principal)
CPT/HCPCS: 99283

== ENCOUNTER 2023-08-08 17:31 | Emergency (ER) | payer SELFPAY ==
[2023-08-08 18:45] LABS: Specific Gravity 1.013 (1.005-1.030); Urine Bilirubin NEGATIVE (Negative); Urine Blood Negative (Negative); Urine Clarity Clear (Clear); Urine Color Light-Yellow (Yellow); Urine Glucose NEGATIVE (Negative); Urine Ketones NEGATIVE (Negative); Urine Microscopic Reflex YN NO UMIC; Urine Nitrite NEGATIVE (Negative); Urine Protein NEGATIVE (Negative); Urine Urobilinogen Normal (Normal)
[2023-08-08 18:47] LABS: Absolute Basophils 0.1 K/uL (0-0.5); Absolute Eosinophils 0.2 K/uL (0-0.5); Absolute Lymphocytes (CBC) 2.4 K/uL (0.7-4.9); Absolute Monocytes 0.6 K/uL (0.1-1.3); Absolute Neutrophil 4.2 K/uL (1.8-8.0); Basophils % 0.9 % (0-1.3); Eosinophils % 2.8 % (0-4.4); Hematocrit 38.2 % (39.6-49.0); Lymphocytes % 32.1 % (15.3-44.8); MCH 27.8 pg (27.0-35.0); MCHC 34.1 g/dL (32.0-36.0); MCV 81.7 fL (80-100); Monocytes % 7.6 % (3.3-12.3); Neutrophils % 56.6 % (41.7-73.7); Platelets 330 thou/uL (152-406); RBC Red Blood Cell Count 4.68 M/uL (4.33-5.43); Red Cell Distribution Width 13.4 % (12.1-15.2)
[2023-08-08 18:52] LABS: PT Prothrombin Time 11.3 SECONDS (9.4-12.5); PTT, Activated Partial Thromb 33.7 SECONDS (24.3-36.9); Protime INR 1.03
[2023-08-08 19:02] LABS: ALT/SGPT 53 U/L (16-61); AST/SGOT 29 U/L (15-37); Albumin 3.4 g/dL (3.4-5.0); Alkaline Phosphatase 81 U/L (45-117); Anion Gap 6.9 mEq/L (5.0-15.0); BUN Blood Urea Nitrogen 14 mg/dL (7-18); Barbiturates NEGATIVE (NEGATIVE); Benzodiazepines NEGATIVE (NEGATIVE); Bicarbonate 30 mEq/L (21-32); Bilirubin Direct 0.2 mg/dL (0-0.2); Bilirubin Indirect, Calculated 0.1 mg/dL (0.2-0.8); Bilirubin Total 0.3 mg/dL (0.2-1.0); Cocaine NEGATIVE (NEGATIVE); Globulin 3.3 g/dL (2.3-3.5); Glomerular Filtration Rate 114 ml/min (=/>90); Glucose Level 90 mg/dL (74-106); METHAMPHETAM NEGATIVE (NEGATIVE); Methadone NEGATIVE (NEGATIVE); Opiates NEGATIVE (NEGATIVE); Phencyclidine NEGATIVE (NEGATIVE); Potassium 3.9 mEq/L (3.5-5.1); Protein, Total 6.7 g/dL (6.4-8.2); Sodium Level 140 mEq/L (136-145); THC Cannibis NEGATIVE (NEGATIVE)
--- NOTE | 2023-08-08 20:10 | ER ---
Nurse's Notes [facility] Name: Reginald Vieyra Age: 37 yrs Sex: Male : 1985 Arrival Date: 08/08/2023 Time: 17:31 Bed 14 Private MD: Diagnosis: Auditory hallucinations Presentation: 08/07 18:01 Chief complaint: Patient states: he has been hearing voices. patient states he is a ap3 witness to God, and he doesn't understand it. He needs help understanding it all. patient denies SI/HI at this time. Coronavirus screen: At this time, the client does not indicate any symptoms associated with coronavirus-19. Ebola Screen: No symptoms or risks identified at this time. Initial Sepsis Screen: Does the patient meet any 2 criteria? No. Patient's initial sepsis screen is negative. Does the patient have a suspected source of infection? No. Patient's initial sepsis screen is negative. Risk Assessment: Do you want to hurt yourself or someone else? Patient reports no desire to harm self or others. Onset of symptoms is unknown. 18:01 Method Of Arrival: Ambulatory ap3 18:01 Acuity: GALE 2 ap3 Triage Assessment: 18:06 General: Appears in no apparent distress. Behavior is cooperative, anxious. Pain: ap3 Denies pain. Neuro: Reports audible hallucinations . Cardiovascular: Patient's skin is warm and dry. Respiratory: Airway is patent Respiratory effort is even, unlabored, Respiratory pattern is regular, symmetrical. Historical: - Allergies: 18:04 No Known Allergies; ap3 - PMHx: 18:04 testicular torsion; Depressive disorder; manic depression; Anxiety; ap3 - Immunization history:: Adult Immunizations up to date. - Infectious Disease History:: Denies. - Social history:: Smoking status: Patient denies any tobacco usage or history of. Screenin:06 Abuse screen: Denies threats or abuse. Nutritional screening: No deficits noted. ap3 Tuberculosis screening: No symptoms or risk factors identified. 18:38 [facility] ED Fall Risk Assessment (Adult) History of falling in the last 3 months, kc6 including since admission No falls in past 3 months (0 pts) Confusion or Disorientation No (0 pts) Intoxicated or Sedated No (0 pts) Impaired Gait No (0 pts) Mobility Assist Device Used No (0 pt) Altered Elimination No (0 pt) Score/Fall Risk Level 0 - 2 = Low Risk. Assessment: 18:07 General: Appears in no apparent distress. comfortable, well groomed, well developed, kc6 Behavior is calm, cooperative, appropriate for age. Pain: Denies pain. Neuro: Level of Consciousness is awake, alert, obeys commands, Oriented to person, place, time, situation, Appropriate for age. Cardiovascular: Capillary refill < 3 seconds. Respiratory: Airway is patent Trachea midline Respiratory effort is even, unlabored, Respiratory pattern is regular, symmetrical. GI: No signs and/or symptoms were reported involving the gastrointestinal system. : No signs and/or symptoms were reported regarding the genitourinary system. EENT: No signs and/or symptoms were reported regarding the EENT system. Derm: No signs and/or symptoms reported regarding the dermatologic system. Skin is intact, is healthy with good turgor, Skin is pink, warm \\T\\ dry. Musculoskeletal: No signs and/or symptoms reported regarding the musculoskeletal system. Circulation, motion, and sensation intact. Capillary refill < 3 seconds, Range of motion: intact in all extremities. 19:00 Reassessment: Patient appears in no apparent distress at this time. Patient and/or cp4 family updated on plan of care and expected duration. Pain level reassessed. Patient is alert, oriented x 3, equal unlabored respirations, skin warm/dry/pink. 20:11 Reassessment:. cp4 20:12 Reassessment: Dispo pending. Security to bring clothes and belongings. cp4 Psych: 18:07 Burden Suicide Severity Screening: In the past month, have you wished you were kc6 or wished you could go to sleep and not wake up? Patient responds "No." "In the past month, have you actually had any thoughts of killing yourself?" Patient responds "no." "In your lifetime, have you ever done anything, started to do anything, or prepared to do anything to end your life?" Patient responds "no.". Subjective: Delusions are caodaism, Hallucinations are auditory. Objective: Patient is cooperative, Speech is normal, Affect is appropriate. Interventions: Removed personal items and placed in bag. Searched person for dangerous items. Urine collected and sent for urine drug test. Belonging list filled out. Safety Checks: Personal items have been removed. Door is closed to patient's room. No visitors are present at this time. Patient uses methamphetamines Last use was 4 days ago. Commitment: Patient will be a voluntary commitment. Vital Signs: 18:01 BP 127 / 81; Pulse 77; Resp 18; Temp 97.8; Pulse Ox 100% ; Weight 97.52 kg; Height 6 ap3 ft. 2 in. ; 20:33 BP 124 / 82; Pulse 74; Resp 18; Pulse Ox 100% ; cp4 18:01 Body Mass Index 27.60 (97.52 kg, 187.96 cm) ap3 ED Course: 17:34 Patient arrived in ED. mg5 17:35 Rafael Boyd PA is PHCP. cp 17:35 Cuco Glynn MD is Attending Physician. cp 18:04 Triage completed. ap3 18:07 Arm band placed on right wrist. ap3 18:38 Laura Mendoza RN is Primary Nurse. kc6 18:38 Safety Checks: Personal items have been removed. The door is not opened, nor is patient kc6 placed in a hallway bed/chair. There are no family/friend visitors at this time Sitter present at this time. 18:38 Initial lab(s) drawn, by me, sent to lab. kc6 18:39 Patient has correct armband on for positive identification. Bed in low position. Call kc6 light in reach. Side rails up X 1. Valuables inventory done. Locked in safe. See valuables checklist. Door closed. Noise minimized. Visitors limited. Lights dimmed. Warm blanket given. Pillow given. Patient is placed in psych hold. 19:00 Report given to Kristina Myles RN. kc6 19:57 Diet tray given. Diet: Patient given snack. Patient given juice. Tolerated well. aw1 20:08 Bobby Mendes MD is Referral Physician. cp 20:33 Provided Education on: psychological problems.. cp4 20:33 No provider procedures requiring assistance completed. Patient did not have IV access cp4 during this emergency room visit. Administered Medications: No medications were administered Medication: 20:13 VIS not applicable for this client. cp4 Outcome: 20:09 Discharge ordered by . cp 20:33 Discharged to home ambulatory, cp4 20:33 Condition: stable 20:33 Discharge instructions given to patient, Instructed on discharge instructions, follow up and referral plans. Demonstrated understanding of instructions, follow-up care, 20:34 Patient left the ED. cp4 Signatures: Rafael Boyd PA PA cp Prokisch, Amanda, RN RN ap3 Laura Mendoza RN RN kc6 Stephanie Castro awZohreh Rivera mg5 Rose Marie Myles cp4 Corrections: (The following items were deleted from the chart) 18:06 18:04 PMHx: manic; ap3 ap3
--- NOTE | 2023-08-08 20:10 | EDPHYS ---
Physician Documentation [facility] Name: Reginald Vieyra Age: 37 yrs Sex: Male : 1985 Arrival Date: 08/08/2023 Time: 17:31 Bed 14 Private MD: ED Physician Cuco Glynn HPI: 08/07 18:30 This 37 yrs old Male presents to ER via Ambulatory with complaints of Psych Problem. cp 18:30 The patient presents to the emergency department with psychosis, has experienced cp auditory hallucinations, a voice telling him he is a witness for God. 18:30 Onset: The symptoms/episode began/occurred 4 year(s) ago. Past psychiatric history: cp Prior diagnosis: depression, Psychiatric medications include: none. Associated signs and symptoms: Pertinent positives; substance abuse, Pertinent negatives: chest pain, fever, homicidal ideation, suicide ideation. Severity of symptoms: in the emergency department the symptoms are unchanged despite home interventions. Patient admits to using methamphetamine 4 days ago. Historical: - Allergies: 18:04 No Known Allergies; ap3 - PMHx: 18:04 testicular torsion; Depressive disorder; manic depression; Anxiety; ap3 - Immunization history:: Adult Immunizations up to date. - Infectious Disease History:: Denies. - Social history:: Smoking status: Patient denies any tobacco usage or history of. ROS: 18:35 Constitutional: HX per HPI cp 18:35 Psych: Positive for auditory hallucinations, Negative for homicidal ideation, suicidal cp ideation, 18:35 All other systems are negative, Exam: 18:33 ECG was reviewed by the Attending Physician. cp 18:40 Constitutional: The patient appears in no acute distress, alert, awake, cp non-diaphoretic, non-toxic, well developed, well nourished, 18:40 Head/Face: Normocephalic, atraumatic. cp 18:40 Eyes: Periorbital structures: appear normal, Pupils: equal, round, and reactive to light and accomodation, Extraocular movements: intact throughout, Conjunctiva: normal, no exudate, no injection, Lids and lashes: appear normal, bilaterally, 18:40 ENT: External ear(s): are unremarkable, Nose: is normal, Mouth: Lips: moist, Oral mucosa: moist, Posterior pharynx: Airway: no evidence of obstruction, patent, 18:40 Chest/axilla: Inspection: normal, 18:40 Cardiovascular: Rate: normal, Rhythm: regular, 18:40 Respiratory: the patient does not display signs of respiratory distress, Respirations: normal, no use of accessory muscles, no retractions, labored breathing, is not present, Breath sounds: are clear throughout, no decreased breath sounds, no stridor, no wheezing, 18:40 Abdomen/GI: Inspection: abdomen appears normal, Palpation: abdomen is soft and non-tender, in all quadrants, 18:40 Neuro: Orientation: to person, place \T\ time. Mentation: able to follow commands, Cerebellar function: is grossly normal, Motor: moves all fours, strength is normal, Sensation: is normal, 18:40 Psych: Behavior/mood is cooperative, Patient has no thoughts/intents to harm self or others. Judgement / Insight is normal. Vital Signs: 18:01 BP 127 / 81; Pulse 77; Resp 18; Temp 97.8; Pulse Ox 100% ; Weight 97.52 kg; Height 6 ap3 ft. 2 in. ; 20:33 BP 124 / 82; Pulse 74; Resp 18; Pulse Ox 100% ; cp4 18:01 Body Mass Index 27.60 (97.52 kg, 187.96 cm) ap3 MDM: 18:10 Patient medically screened. cp 20:08 Data reviewed: vital signs, nurses notes, lab test result(s), EKG, and as a result, I cp will discharge patient. 20:08 Differential diagnosis: drug withdrawal. acute psychotic break, depression, psychosis cp secondary to non-compliance. Independent interpretation of the following test(s) in the Emergency Department EKG: See my EKG interpretation above. Counseling: I had a detailed discussion with the patient and/or guardian regarding the historical points, exam findings, and any diagnostic results supporting the discharge/admit diagnosis, lab results, the need for outpatient follow up, for definitive care, a psychiatrist, to return to the emergency department if symptoms worsen or persist or if there are any questions or concerns that arise at home. 08/07 18:25 Order name: Acetaminophen; Complete Time: 19:11 08/07 18:25 Order name: Basic Metabolic Panel; Complete Time: 19:11 08/07 19:11 Interpretation: Reviewed. 08/07 18:25 Order name: CBC with Diff; Complete Time: 19:11 cp 08/07 19:11 Interpretation: Normal except: HGB 13.0; HCT 38.2. cp 08/07 18:25 Order name: ETOH Level; Complete Time: 19:11 cp 08/07 18:25 Order name: Hepatic Function; Complete Time: 19:11 cp 08/07 19:11 Interpretation: Normal except: IBILI, CALC 0.1; A/G 1.0. cp 08/07 18:25 Order name: PT-INR; Complete Time: 19:11 cp 08/07 18:25 Order name: Ptt, Activated; Complete Time: 19:11 cp 08/07 18:25 Order name: Salicylate; Complete Time: 19:11 cp 08/07 18:25 Order name: Urinalysis w/ reflexes; Complete Time: 19:11 cp 08/07 18:25 Order name: Urine Drug Screen; Complete Time: 19:11 cp 08/07 19:11 Interpretation: Reviewed. cp 08/07 18:25 Order name: EKG; Complete Time: 18:26 cp 08/07 18:25 Order name: EKG - Nurse/Tech; Complete Time: 18:38 cp 08/07 18:25 Order name: Labs collected and sent; Complete Time: 18:38 cp 08/07 18:25 Order name: Suicide Screening ([place]); Complete Time: 18:38 cp EC:33 Rate is 72 beats/min. Rhythm is regular. WA interval is normal. QRS interval is cp prolonged at 104 msec. QT interval is normal. T waves are Inverted in lead aVR. Interpreted by me. Reviewed by me. Administered Medications: No medications were administered Disposition Summary: 08/08/23 20:09 Discharge Ordered Notes: Location: Home cp Problem: an ongoing problem cp Symptoms: are unchanged cp Condition: Stable cp Diagnosis - Auditory hallucinations cp Followup: cp - With: Bobby Mendes MD - When: 2 - 3 days - Reason: Recheck today's complaints Discharge Instructions: - Discharge Summary Sheet cp - Schizophrenia cp - Managing Schizophrenia cp Forms: - Medication Reconciliation Form cp - Antibiotic Education cp - Prescription Opioid Use cp - Patient Portal Instructions cp - Leadership Thank You Letter cp Addendum: 08/10/2023 05:47 I was immediately available for consultation during this patient's visit. I did not e c2 personally see the patient or discuss the patient with the VENKAT. . Signatures: Dispatcher [employer] EDMS Rafael Boyd PA PA cp Prokisch, Amanda, RN RN ap3 Cuco Glynn MD MD ec2 Rose Marie Myles cp4 Corrections: (The following items were deleted from the chart) 08/07 18:06 18:04 PMHx: manic; ap3 ap3 18:26 18:26 ACETAMINOPHEN+C.LAB.BRZ ordered. EDMS EDMS 18:26 18:26 BASIC METABOLIC PANEL+C.LAB.BRZ ordered. EDMS EDMS 18:26 18:26 CBC+H.LAB.BRZ ordered. EDMS EDMS 18:26 18:26 ETHANOL+C.LAB.BRZ ordered. EDMS EDMS 18:26 18:26 HEPATIC FUNCTION+C.LAB.BRZ ordered. EDMS EDMS 18:26 18:26 PROTIME (+INR)+COAG.LAB.BRZ ordered. EDMS EDMS 18:26 18:26 PTT, ACTIVATED+COAG.LAB.BRZ ordered. EDMS EDMS 18:26 18:26 SALICYLATE+C.LAB.BRZ ordered. EDMS EDMS 18:26 18:26 Urinalysis+U.LAB.BRZ ordered. EDMS EDMS 18:26 18:26 URINE DRUG SCREEN+UC.LAB.BRZ ordered. EDMS EDMS 18:38 18:25 IV Saline Lock ordered. cp kc6
[2023-08-08 21:25] VITALS: BP 124/82; TEMP 97.8; O2SAT 100
--- NOTE | 2023-08-10 13:31 | EKG ---
Test Date: 2023-08-08 Test Time: 18:25:40 Senior [employer]: STALIN MEASUREMENT RESULTS: Intervals: Rate: 72 WI: 160 QRSD: 104 QT: 366 QTc: 400 [place]: P: 71 WI: 160 QRS: 72 T: 54 INTERPRETIVE STATEMENTS: Normal sinus rhythm Normal ECG Compared to ECG 10/18/2018 06:09:55 No significant changes Electronically Signed On 08-10-23 13:27:49 CDT by Blu Chew
== END 2023-08-08 20:34 | disposition home or self-care (01) ==
LOC: ER 17:31
DX: R44.0 Auditory hallucinations (principal)
CPT/HCPCS: 36415; 80048; 80076; 80143; 80179; 80307; 81003; 82077; 85025; 85610; 85730; 93005; 99284